=== PATIENT | female | born 1950 | race Caucasian/White ===

== ENCOUNTER → 2018-09-03 | Outpatient (REF) | payer MEDICARE, BC, OTHER ==
[~2018-09-03] MED LIST: ASPI81TA26 PO; ATOR1TAB19 PO; BIMA01SOL OU; CALC600T31 PO; CO Q100C PO; OMEG100011 PO; RAMI1CAP21 PO; VITA100066 PO; VITA100T51 PO; VITMTA PO; [UNRECOGNIZED DRUG - OTHER] PO
[2018-09-03 20:16] LABS: CHLAMYDIA DNA AMPLIFICATION NEGATIVE (NEGATIVE); GC DNA AMPLIFICATION NEGATIVE (NEGATIVE)
== END ==
LOC: M SFHCCLAY 11:16
PROVIDERS: ATTEND Nurse Practitioner Family
DX: Z12.4 Encounter for screening for malignant neoplasm of cervix (principal); N76.1 Subacute and chronic vaginitis
CPT/HCPCS: 87070; 87077; 87186; 87491; 87591; G0101; G0123; G0463